=== PATIENT | male | born 1945 | race Caucasian/White ===

== ENCOUNTER 2018-01-14 07:26 | Emergency (ER) | payer MEDICARE, OTHER ==
[2018-01-14 07:35] VITALS: BP 166/79
--- NOTE | 2018-01-14 07:57 | PHYS DOC ---
Past History Past Medical History: High Cholesterol, Hypertension Past Surgical History: Appendectomy Alcohol Use: None Drug Use: None Adult General Chief Complaint Chief Complaint: COUGH HPI HPI Patient is a 72 year old male who presents with cough for the last 2 weeks. He states is productive at times but he has never looked at it. He thinks he had a fever once about 3 days ago for few hours and resolved. He denies any shortness of breath, orthopnea, dyspnea on exertion. He states he's been using Mucinex and it has helped somewhat. He states that this happens to him before couple of times and usually if Mucinex doesn't cleared up after a week or to his doctor prescribed him a Z-Vivek. He does have a history of dyslipidemia, hypertension and diabetes. He states is on metformin for prediabetes. He denies any history of coronary disease or heart attacks. He denies any history of smoking. Review of Systems Review of Systems Constitutional: Denies fever or chills [] Eyes: Denies change in visual acuity, redness, or eye pain [] HENT: Denies nasal congestion or sore throat [] Respiratory: Positive for cough, Denies shortness of breath [] Cardiovascular: No additional information not addressed in HPI [] GI: Denies abdominal pain, nausea, vomiting, bloody stools or diarrhea [] : Denies dysuria or hematuria [] Musculoskeletal: Denies back pain or joint pain [] Integument: Denies rash or skin lesions [] Neurologic: Denies headache, focal weakness or sensory changes [] Endocrine: Denies polyuria or polydipsia [] All other systems were reviewed and found to be within normal limits, except as documented in this note. Physical Exam Physical Exam Constitutional: Well developed, well nourished, no acute distress, non-toxic appearance. [] HENT: Normocephalic, atraumatic, bilateral external ears normal, oropharynx moist, no oral exudates, nose normal. [] Eyes: PERRLA, EOMI, conjunctiva normal, no discharge. [] Neck: Normal range of motion, no tenderness, supple, no stridor. [] Cardiovascular:Heart rate regular rhythm, no murmur [] Lungs & Thorax: Bilateral breath sounds clear to auscultation [] Abdomen: Bowel sounds normal, soft, no tenderness, no masses, no pulsatile masses. [] Skin: Warm, dry, no erythema, no rash. [] Back: No tenderness, no CVA tenderness. [] Extremities: No tenderness, no cyanosis, no clubbing, ROM intact, no edema. [] Neurologic: Alert and oriented X 3, normal motor function, normal sensory function, no focal deficits noted. [] Psychologic: Affect normal, judgement normal, mood normal. [] Current Patient Data Vital Signs Vital Signs Date Time Temp Pulse Resp B/P (MAP) Pulse Ox O2 Delivery O2 Flow Rate FiO2 01/14/18 07:35 98.1 85 16 95 Room Air EKG EKG [] Radiology/Procedures Radiology/[place] [address] IMAGING REPORT Signed PATIENT: ANDRESSA HURD ACCOUNT: [id number] : 1945 LOCATION: ER AGE: 72 SEX: M EXAM STATUS: PRE ER ORD. PHYSICIAN: MARÍA PERRY MD REASON: cough PROCEDURE: CHEST PA & LATERAL 2 view CXR: Clinical indications: Cough for 2 weeks. Findings: No acute lung infiltrate or pleural effusion or pulmonary edema or lung mass or pneumothorax is seen. The heart size, pulmonary vasculature, mediastinum and both sukhwinder are unremarkable. The osseous structures appear intact. Impression: No acute radiographic abnormality is seen. DICTATED AND SIGNED BY: SHELL BRAND MD DATE: 01/14/18 0824 CC: MARÍA PERRY MD; NON,STAFF ~ Impressions: Bronchitis Course & Med Decision Making Course & Med Decision Making Pertinent Labs and Imaging studies reviewed. (See chart for details) Vitals within normal limits. Chest x-ray does not show any focal consolidations. He does not have any orthopnea or dyspnea on exertion. i'll discharge with a Z-Vivek and he is to follow-up with his primary care physician. Return precautions given. Dragon Disclaimer Dragon Disclaimer This electronic medical record was generated, in whole or in part, using a voice recognition dictation system. Departure Departure: Impression: Primary Impression: Bronchitis Disposition: 01 HOME, SELF-CARE Condition: STABLE Referrals: NON,STAFF (PCP) Patient Instructions: Bronchitis Additional Instructions: The chest x-ray didn't show any concerning signs. At this point you are being discharged with a Z-Vivek, please use it as directed. You should follow-up with your primary care physician within the next 4-5 days. If your symptoms get worse , you develop shortness of breath, fevers or other concerns, please return back to the ER. Scripts Azithromycin (AZITHROMYCIN TABLET) 250 Mg Tablet 1 PKG PO UD, #6 TAB Prov: MARÍA PERRY MD 01/14/18 MARÍA PERRY MD Jan 14, 2018 07:57
[2018-01-14] MEDS ORDERED: AZIT250T6 PO (08:21)
--- NOTE | 2018-01-14 08:29 | RAD ---
2 view CXR: Clinical indications: Cough for 2 weeks. Findings: No acute lung infiltrate or pleural effusion or pulmonary edema or lung mass or pneumothorax is seen. The heart size, pulmonary vasculature, mediastinum and both sukhwinder are unremarkable. The osseous structures appear intact. Impression: No acute radiographic abnormality is seen.
== END 2018-01-14 08:25 | disposition home or self-care (01) ==
LOC: ER 07:26
DX: J40 Bronchitis, not specified as acute or chronic (principal); E11.9 Type 2 diabetes mellitus without complications; E78.00 Pure hypercholesterolemia, unspecified; I10 Essential (primary) hypertension; E78.5 Hyperlipidemia, unspecified
CPT/HCPCS: 71046; 99284